=== PATIENT | male | born 1990 | race African-American/Black ===

== ENCOUNTER 2021-08-24 18:48 | Emergency (ER) | payer SELFPAY ==
[~2021-08-24] VITALS: Ht 175.2 cm; Wt 70.0 kg
[2021-08-24 18:51] VITALS: BP 119/78
--- NOTE | 2021-08-24 19:14 | ED Abdominal Pain ---
General Chief Complaint: Abdominal/GI Problems Stated Complaint: ABD PAINS,HOT FLASHES Source of Information: Patient History of Present Illness Date Seen by Provider: Aug 24, 2021 Time Seen by Provider: 18:55 Initial Comments Patient is a 31-year-old -[place] male traveling from out of town who presents with complaints of slow digestive system. Symptoms of been ongoing for the past 2 months. Patient states he is constipated at times he has been traveling from [place] on his way to [place] and is planning on spending the night in [place]. He denies nausea vomiting or diarrhea. No abdominal pain at this time. No other acute symptoms or complaints. Severity/Quality: Moderate Radiation: No Radiation Activities at Onset: Activity Allergies and Home Medications Patient Home Medication List Home Medication List Reviewed: Yes Review of Systems Review of Systems Constitutional: see HPI EENTM: See HPI Respiratory: See HPI Cardiovascular: See HPI Gastrointestinal: See HPI Genitourinary: See HPI Musculoskeletal: see HPI Skin: see HPI Psychiatric/Neurological: See HPI Endocrine: See HPI Hematologic/Lymphatic: See HPI Physical Exam Vital Signs Capillary Refill : Height/Weight/BMI Height: '" Weight: lbs. oz. kg; BMI Method: General Appearance: WD/WN, no apparent distress, other (Anxious) HEENT: PERRL/EOMI, normal ENT inspection, other (Conjunctiva injected) Neck: non-tender, supple Gastrointestinal: non tender, soft Focused Exam Sepsis Stage: Ruled Out Departure Communication (Admissions) Abdomen soft, nontender. Nonacute complaint with benign exam. Recommendations are outpatient follow-up upon arrival to his and destination. Impression Primary Impression: Constipation Disposition: 01 HOME, SELF-CARE Condition: Stable Departure-Patient Inst. Decision time for Depature: 19:14 Referrals: NO,LOCAL PHYSICIAN (PCP/Family) Primary Care Physician Patient Instructions: Constipation, Adult (DC) Add. Discharge Instructions: Please increase daily fluid and fiber intake and follow-up with local primary care provider upon arrival to your final destination. All discharge instructions reviewed with patient and/or family. Voiced understanding. ARIANE MIKE DO Aug 24, 2021 19:14
== END 2021-08-24 19:19 | disposition home or self-care (01) ==
LOC: ER FS 18:50
DX: K59.00 Constipation, unspecified (principal)
CPT/HCPCS: 99281